=== PATIENT | male | born 1970 | race Caucasian/White ===

== ENCOUNTER → 2017-03-14 | Outpatient (CLI) | payer OTHER ==
[2014-05-22 13:15] VITALS: BP 137/65
[~2017-03-14] MED LIST: ASPI-482 PO; ASPI325T8 PO; AZIT250T6 PO; BACL10TA PO; BUPR100T8 PO; CITA20TA5 PO; CLOP75TA PO; CYCL-331 PO; FLUT15OI2 TP; FLUT16SP2 NS; GABA-586 PO; HYDR-2758 PO; LEVO175T5 PO; METO-239 PO; NITR0.4T SL; NORT25CA PO; ONDA4TAB12 PO; PRED50TA PO; PREG75CA PO; PROM118S2 PO; ZOLP10TA4 PO
[2017-03-15 14:03] LABS: FREE T4 1.11 ng/dL (0.76-1.46); THYROID STIM HORMONE (TSH) 0.911 uIU/mL (0.358-3.740)
== END | disposition home or self-care (01) ==
LOC: LAB 17:24
PROVIDERS: ATTEND Family Medicine
DX: E03.8 Other specified hypothyroidism (principal); Z87.891 Personal history of nicotine dependence
CPT/HCPCS: 84439; 84443